=== PATIENT | female | born 1985 | race Caucasian/White ===

== ENCOUNTER 2021-11-14 19:35 | Emergency (ER) | payer BC ==
[2021-11-14] MEDS ORDERED: IBUPROFEN800 MG PO (21:20)
== END 2021-11-14 21:38 | disposition home or self-care (01) ==
LOC: ER1 19:35
DX: S92.352A Displaced fracture of fifth metatarsal bone, left foot, initial encounter for closed fracture (principal); W19.XXXA Unspecified fall, initial encounter
CPT/HCPCS: 73610; 73630; 99283

== ENCOUNTER → 2021-12-06 | Outpatient (CLI) | payer BC ==
[~2021-12-06] MED LIST: IBUPROFEN800 MG PO
== END ==
LOC: KOH-I 16:19
DX: S92.352D Displaced fracture of fifth metatarsal bone, left foot, subsequent encounter for fracture with routine healing (principal)
CPT/HCPCS: 73630

== ENCOUNTER → 2021-12-27 | Outpatient (CLI) | payer BC | LOC: KOH-I 13:33 | DX: S92.352D Displaced fracture of fifth metatarsal bone, left foot, subsequent encounter for fracture with routine healing (principal); X58.XXXD Exposure to other specified factors, subsequent encounter | CPT/HCPCS: 73630 ==

== ENCOUNTER → 2022-01-27 | Outpatient (CLI) | payer BC | LOC: KOH-I 15:14 | DX: S92.355D Nondisplaced fracture of fifth metatarsal bone, left foot, subsequent encounter for fracture with routine healing (principal); X58.XXXD Exposure to other specified factors, subsequent encounter | CPT/HCPCS: 73630 ==

== ENCOUNTER → 2022-02-24 | Outpatient (CLI) | payer BC | LOC: KOH-I 14:12 | DX: S92.352A Displaced fracture of fifth metatarsal bone, left foot, initial encounter for closed fracture (principal) | CPT/HCPCS: 73610 ==